=== PATIENT | female | born 1940 | race Caucasian/White ===

== ENCOUNTER → 2017-09-07 | Outpatient (CLI) | payer MEDICARE, BC ==
[~2017-09-07] MED LIST: ALEVE220 M1 PO; ASA81 MG PO; ATORVASTATIN CA20 MG PO; COUMADIN2.5 MG PO; METHOTREXATE2.5 MG PO; RESTASIS1 EACH OU; TRAMADOL HCL50 M1 PO; ULTRAM50 MG PO; Z.0.CYMBALTA60 MG PO; Z.0.DIOVAN HCT 3201 PO; Z.0.LEVOTHYROXINE112 PO; Z.0.METOPROLOL TART2 PO; Z.0.NEXIUM40 MG PO; [UNRECOGNIZED DRUG - CODE] PO; [UNRECOGNIZED DRUG - OTHER] PO; fish oil PO; provastatin PO
--- NOTE | 2017-09-07 15:29 | Diagnostic Imaging Report ---
EXAMINATION: Head CT HISTORY: Memory loss, status post fall, evaluate for subdural hematoma COMPARISON: None. TECHNIQUE: Multidetector axial images were obtained without contrast from the foramen magnum to the vertex . The images were reconstructed using brain and bone algorithms. Thin section brain images were reformatted into coronal and sagittal planes. Intravenous contrast: None. Motion/streaking artifact limits the evaluation of the skull base and posterior cranial fossa. FINDINGS: Parenchyma: 1. Moderate confluent supratentorial white matter hypodensities, most likely nonspecific chronic microvascular ischemic changes. 2. No mass or hemorrhage. No CT evidence of acute territorial vascular insult. Extra-axial spaces:No abnormal density. No extra-axial fluid collections Brain volume: Normal for age. Ventricles: No hydrocephalus or displacement. Arteries: No density suggestive of thrombus. Dural sinuses: No abnormal density. Extra-axial spaces: No abnormal density. Foramen magnum: No mass, Chiari malformation, or basilar invagination. Sella: No obvious mass. Paranasal/mastoid sinuses: Imaged portions unremarkable. Skull/Scalp: No lytic or blastic lesions. No fractures. IMPRESSION: 1. No acute post traumatic intracranial abnormalities, particularly no subdural hematomas. 2. Moderate chronic microvascular ischemic changes. Signed by: Dr. Pepper Perera M.D. on 09/07/2017 3:25 PM
--- NOTE | 2017-09-07 16:09 | Diagnostic Imaging Report ---
History: MEMORY LOSS / STATUS POST FALL Comparison studies: None Technique: Multiplanar multisequence MR images of the brain without contrast Findings: Scalp: Normal in signal . No masses . Bone marrow: Normal in signal intensity. Extra-axial: No masses or fluid collections. Brain sulci: Moderately prominent. Ventricles: Moderate compensatory dilatation. No hydrocephalus. Parenchyma: Diffuse T2 FLAIR hyperintense foci in the supratentorial white matter and in the jan are nonspecific small vessel ischemic changes. No masses, hemorrhage, or acute or chronic cortical vascular insult Suprasellar region: No abnormalities. Craniocervical junction: No abnormalities. Patent foramen magnum. No Chiari one malformation. Vessels: Normal flow-voids in the arteries and sinuses. IMPRESSION: 1. Severe microvascular ischemic changes in the supratentorial white matter and in the jan. 2. Otherwise, no abnormalities. Signed by: Dr. Brendon Negrete M.D. on 09/07/2017 5:50 PM
== END ==
LOC: MRI 14:19
DX: R41.3 Other amnesia (principal); I10 Essential (primary) hypertension; Z91.81 History of falling
CPT/HCPCS: 70450; 70551

== ENCOUNTER 2020-05-21 11:11 | Inpatient (IN) | payer MEDICARE, BC ==
[~2020-05-21] VITALS: Ht 160 cm; Wt 92.1 kg
[~2020-05-21 11:11] MED LIST changes: +AMLODIPINE BESYL5 MG PO; +COREG3.125 MG PO; +FOLIC ACID0.4 MG PO; +FUROSEMIDE40 MG PO; +HYDRALAZINE HCL10 MG PO; +LOSARTAN POTASS25 MG PO; +OMEPRAZOLE40 MG PO; +PRESERVISION T1 EACH PO; +VIT D PO; +WARFARIN SODIUM3 MG PO; +[UNRECOGNIZED DRUG - OTHER] PO
[2020-05-21 12:37] LABS: INR 1.27; PROTHROMBIN TIME 16.8 seconds (11.9-14.5)
[2020-05-21 12:38] LABS: PARTIAL THROMBOPLASTIN TIME 28.6 seconds (23.8-35.5)
[2020-05-21] MEDS ORDERED: ONDANSETRON HCL INJ 2MG/ML 2ML 2 MG/ML VIAL ONE (12:43)
[2020-05-21] MEDS ORDERED: METOCLOPRAMIDE HCL 10 MG/2ML VIAL ONE (15:10)
[2020-05-21] MEDS ORDERED: DEXAMETHASONE SOD PHOS INJ 4 MG/ML VIAL ONE (15:12)
[2020-05-21 16:02] VITALS: BP 180/66
[2020-05-21 16:28] VITALS: BP 188/66
[2020-05-21] MEDS ORDERED: CEFTRIAXONE SOD 1 GM/50 ML BAG IV SCH (17:15)
[2020-05-21] MEDS: LOSARTAN POTASSIUM 25 MG TAB PO SCH (17:30)
[2020-05-21] MEDS: HYDRALAZINE HCL 10 MG TAB PO SCH (17:30)
[2020-05-21] MEDS: CARVEDILOL 3.125 MG TAB PO SCH (17:30)
[2020-05-21] MEDS ORDERED: CEFTRIAXONE SOD 1 GM in SODIUM CHLORIDE 0.9% 50ML 50 ML IV SCH (18:00)
[2020-05-21] MEDS ORDERED: PROPOFOL IV EMULSION 10 MG/ML 20 ML VIAL ONE (18:01)
[2020-05-21] MEDS ORDERED: LIDOCAINE HCL 2% LOCAL INJ 5 ML SDV VIAL INJ ONE (18:01)
[2020-05-21] MEDS: ALBUTEROL/IPRATROPIUM 3 ML NEB NEB SCH (20:05)
[2020-05-21 20:14] VITALS: BP 130/54
[2020-05-21 20:19] VITALS: BP 130/54
[2020-05-21] MEDS ORDERED: SODIUM CHLORIDE 0.9% 50ML 50 ML ONE (20:35)
[2020-05-21] MEDS: CEFTRIAXONE SOD 1 GM in SODIUM CHLORIDE 0.9% 50ML 50 ML IV SCH (20:49)
[2020-05-21] MEDS: (Cyclosporine (Restasis) 1 DROP) OP SCH (20:49)
[2020-05-21] MEDS: ATORVASTATIN 20 MG TAB PO SCH (20:49)
[2020-05-22] VITALS (9 sets, daily range): BP systolic 99–184; BP diastolic 46–80
[2020-05-22] MEDS: ALBUTEROL/IPRATROPIUM 3 ML NEB NEB SCH ×3 (01:40→18:30)
[2020-05-22] MEDS: LEVOTHYROXINE SODIUM 100 MCG TAB PO SCH (05:24)
[2020-05-22 05:30] LABS: BASOPHILS % 0.2 % (0.0-1.0); HEMATOCRIT 32.9 % (34.2-44.1); HEMOGLOBIN 10.2 g/dL (12.0-16.0); LYMPHOCYTES # (AUTO) 0.7 (1.0-3.2); LYMPHOCYTES % 4.2 % (18.0-39.1); MEAN CORPUSCULAR HEMOGLOBIN 28.9 pg (28-32); MEAN CORPUSCULAR VOLUME 93.2 fL (81-99); MONOCYTES # (AUTO) 0.3 (0.2-0.8); MONOCYTES % 1.5 % (4.4-11.3); NEUTROPHILS # (AUTO) 15.9 (2.1-6.9); NEUTROPHILS % 93.3 % (38.7-80.0); PLATELET COUNT 244 x10e3/uL (140-360); RED BLOOD COUNT 3.53 x10e6/uL (3.6-5.1); RED CELL DISTRIBUTION WIDTH 22.9 % (11.7-14.4)
[2020-05-22 05:57] LABS: ANION GAP 14.3 mmol/L (8-16); BLOOD UREA NITROGEN 19 mg/dL (7-26); BUN/CREATININE RATIO 22 (6-25); CALCIUM 8.9 mg/dL (8.4-10.2); CARBON DIOXIDE 26 mmol/L (22-29); CHLORIDE 104 mmol/L (98-107); CREATININE, SERUM 0.86 mg/dL (0.57-1.11); EST GLOMERULAR FILTRATION RATE > 60 ML/MIN (60-); GLUCOSE 208 mg/dL (74-118); POTASSIUM 4.3 mmol/L (3.5-5.1); SODIUM 140 mmol/L (136-145)
[2020-05-22] MEDS: (Cyclosporine (Restasis) 1 DROP) OP SCH ×2 (08:47→20:24)
[2020-05-22] MEDS: FOLIC ACID 1 MG TAB PO SCH (08:48)
[2020-05-22] MEDS: PANTOPRAZOLE SOD 40 MG TABEC PO SCH (08:48)
[2020-05-22] MEDS: FUROSEMIDE 20 MG TAB PO SCH (08:48)
[2020-05-22] MEDS: LOSARTAN POTASSIUM 25 MG TAB PO SCH ×2 (08:48→16:04)
[2020-05-22] MEDS: CHOLECALCIFEROL 1,000 UNIT TAB PO SCH (08:48)
[2020-05-22] MEDS: CARVEDILOL 3.125 MG TAB PO SCH ×2 (08:48→16:03)
[2020-05-22] MEDS: DULOXETINE HCL 30 MG DELAYED RELEASE PO SCH (08:48)
[2020-05-22] MEDS: HYDRALAZINE HCL 10 MG TAB PO SCH ×2 (08:48→16:03)
[2020-05-22] MEDS: OCUVITE PRESERVISION TABLET PO SCH (08:48)
[2020-05-22] MEDS: AMLODIPINE BESYLATE 5 MG TAB PO SCH (08:48)
[2020-05-22] MEDS ORDERED: NON-FORMULARY MEDICATION (Cholecalciferol (Vitamin D3) (Vitamin D3) 2,000 UNIT) PO SCH (09:00)
[2020-05-22] MEDS ORDERED: NON-FORMULARY MEDICATION (Duloxetine Hcl (Cymbalta) 60 MG) PO SCH (09:00)
[2020-05-22] MEDS ORDERED: LEVOTHYROXINE SODIUM 112 MCG TAB PO SCH (09:00)
[2020-05-22] MEDS ORDERED: NON-FORMULARY MEDICATION (Folic Acid* 0.4 MG) PO SCH (09:00)
[2020-05-22] MEDS: ATORVASTATIN 20 MG TAB PO SCH (20:24)
[2020-05-22] MEDS: CEFTRIAXONE SOD 1 GM in SODIUM CHLORIDE 0.9% 50ML 50 ML IV SCH (20:26)
[2020-05-23] VITALS (7 sets, daily range): BP systolic 141–170; BP diastolic 38–63
[2020-05-23] MEDS: ALBUTEROL/IPRATROPIUM 3 ML NEB NEB SCH ×4 (01:00→19:50)
[2020-05-23] MEDS: LEVOTHYROXINE SODIUM 100 MCG TAB PO SCH (05:46)
[2020-05-23] MEDS: LOSARTAN POTASSIUM 25 MG TAB PO SCH ×2 (08:46→16:38)
[2020-05-23] MEDS: PANTOPRAZOLE SOD 40 MG TABEC PO SCH (08:46)
[2020-05-23] MEDS: CARVEDILOL 3.125 MG TAB PO SCH ×2 (08:46→16:38)
[2020-05-23] MEDS: CHOLECALCIFEROL 1,000 UNIT TAB PO SCH (08:46)
[2020-05-23] MEDS: FOLIC ACID 1 MG TAB PO SCH (08:46)
[2020-05-23] MEDS: FUROSEMIDE 20 MG TAB PO SCH (08:46)
[2020-05-23] MEDS: OCUVITE PRESERVISION TABLET PO SCH (08:46)
[2020-05-23] MEDS: HYDRALAZINE HCL 10 MG TAB PO SCH ×2 (08:46→16:38)
[2020-05-23] MEDS: AMLODIPINE BESYLATE 5 MG TAB PO SCH (08:46)
[2020-05-23] MEDS: DULOXETINE HCL 30 MG DELAYED RELEASE PO SCH (08:46)
[2020-05-23] MEDS: (Cyclosporine (Restasis) 1 DROP) OP SCH ×2 (08:47→21:00)
[2020-05-23] MEDS: WARFARIN SOD 2 MG TAB PO SCH (18:25)
[2020-05-23] MEDS: TAMSULOSIN HCL 0.4 MG CAP PO SCH (20:45)
[2020-05-23] MEDS: ATORVASTATIN 20 MG TAB PO SCH (20:45)
[2020-05-23] MEDS: CEFTRIAXONE SOD 1 GM in SODIUM CHLORIDE 0.9% 50ML 50 ML IV SCH (20:45)
[2020-05-23] MEDS ORDERED: SALINE 0.65% NAS SOLN 1 SPRAY BTL PRN (21:30)
[2020-05-23] MEDS ORDERED: PREDNISONE 20 MG TAB PO ONE (21:30)
[2020-05-24] VITALS (9 sets, daily range): BP systolic 114–196; BP diastolic 52–76
[2020-05-24] MEDS: ALBUTEROL/IPRATROPIUM 3 ML NEB NEB SCH ×4 (01:45→18:53)
[2020-05-24] MEDS: LEVOTHYROXINE SODIUM 100 MCG TAB PO SCH (05:16)
[2020-05-24 05:50] LABS: BASOPHILS % 0.2 % (0.0-1.0); EOSINOPHILS % 0.3 % (0.0-6.0); HEMATOCRIT 30.8 % (34.2-44.1); HEMOGLOBIN 9.7 g/dL (12.0-16.0); LYMPHOCYTES # (AUTO) 0.5 (1.0-3.2); LYMPHOCYTES % 5.4 % (18.0-39.1); MEAN CORPUSCULAR HEMOGLOBIN 28.8 pg (28-32); MEAN CORPUSCULAR HGB CONC 31.5 g/dL (31-35); MEAN CORPUSCULAR VOLUME 91.4 fL (81-99); MONOCYTES # (AUTO) 0.1 (0.2-0.8); MONOCYTES % 1.1 % (4.4-11.3); NEUTROPHILS # (AUTO) 8.9 (2.1-6.9); NEUTROPHILS % 91.7 % (38.7-80.0); PLATELET COUNT 220 x10e3/uL (140-360); RED BLOOD COUNT 3.37 x10e6/uL (3.6-5.1); RED CELL DISTRIBUTION WIDTH 23.6 % (11.7-14.4)
[2020-05-24 06:01] LABS: INR 1.02
[2020-05-24] MEDS: DULOXETINE HCL 30 MG DELAYED RELEASE PO SCH (08:41)
[2020-05-24] MEDS: (Cyclosporine (Restasis) 1 DROP) OP SCH ×2 (08:41→19:53)
[2020-05-24] MEDS: CARVEDILOL 3.125 MG TAB PO SCH ×2 (08:41→17:19)
[2020-05-24] MEDS: AMLODIPINE BESYLATE 5 MG TAB PO SCH ×3 (08:41→20:56)
[2020-05-24] MEDS: CHOLECALCIFEROL 1,000 UNIT TAB PO SCH (08:41)
[2020-05-24] MEDS: LORATADINE 10 MG TAB PO SCH (08:41)
[2020-05-24] MEDS: OCUVITE PRESERVISION TABLET PO SCH (08:41)
[2020-05-24] MEDS: LOSARTAN POTASSIUM 25 MG TAB PO SCH ×2 (08:41→17:19)
[2020-05-24] MEDS: HYDRALAZINE HCL 10 MG TAB PO SCH ×2 (08:41→17:18)
[2020-05-24] MEDS: PANTOPRAZOLE SOD 40 MG TABEC PO SCH (08:41)
[2020-05-24] MEDS: FOLIC ACID 1 MG TAB PO SCH (08:41)
[2020-05-24] MEDS: FUROSEMIDE 20 MG TAB PO SCH (08:41)
[2020-05-24] MEDS: WARFARIN SOD 2 MG TAB PO SCH (17:19)
[2020-05-24] MEDS: CEFTRIAXONE SOD 1 GM in SODIUM CHLORIDE 0.9% 50ML 50 ML IV SCH (20:56)
[2020-05-24] MEDS: ATORVASTATIN 20 MG TAB PO SCH (20:56)
[2020-05-24] MEDS: TAMSULOSIN HCL 0.4 MG CAP PO SCH (20:56)
[2020-05-25] VITALS (7 sets, daily range): BP systolic 120–159; BP diastolic 48–61
[2020-05-25] MEDS: ALBUTEROL/IPRATROPIUM 3 ML NEB NEB SCH ×3 (01:00→13:08)
[2020-05-25] MEDS: LEVOTHYROXINE SODIUM 100 MCG TAB PO SCH (05:54)
[2020-05-25 06:17] LABS: BASOPHILS % 0.5 % (0.0-1.0); EOSINOPHILS # (AUTO) 0.5 (0.0-0.4); EOSINOPHILS % 6.2 % (0.0-6.0); HEMATOCRIT 28.3 % (34.2-44.1); HEMOGLOBIN 8.5 g/dL (12.0-16.0); LYMPHOCYTES # (AUTO) 1.9 (1.0-3.2); LYMPHOCYTES % 22.1 % (18.0-39.1); MEAN CORPUSCULAR HEMOGLOBIN 28.4 pg (28-32); MEAN CORPUSCULAR VOLUME 94.6 fL (81-99); MONOCYTES # (AUTO) 1.1 (0.2-0.8); MONOCYTES % 13.5 % (4.4-11.3); NEUTROPHILS # (AUTO) 4.8 (2.1-6.9); NEUTROPHILS % 56.7 % (38.7-80.0); PLATELET COUNT 186 x10e3/uL (140-360); RED BLOOD COUNT 2.99 x10e6/uL (3.6-5.1); RED CELL DISTRIBUTION WIDTH 24.2 % (11.7-14.4)
[2020-05-25 06:35] LABS: ANION GAP 16.9 mmol/L (8-16); BLOOD UREA NITROGEN 23 mg/dL (7-26); BUN/CREATININE RATIO 30 (6-25); CALCIUM 8.2 mg/dL (8.4-10.2); CARBON DIOXIDE 23 mmol/L (22-29); CHLORIDE 105 mmol/L (98-107); CREATININE, SERUM 0.77 mg/dL (0.57-1.11); EST GLOMERULAR FILTRATION RATE > 60 ML/MIN (60-); GLUCOSE 117 mg/dL (74-118); POTASSIUM 3.9 mmol/L (3.5-5.1); SODIUM 141 mmol/L (136-145)
[2020-05-25] MEDS: (Cyclosporine (Restasis) 1 DROP) OP SCH (09:00)
[2020-05-25] MEDS: CARVEDILOL 3.125 MG TAB PO SCH ×2 (09:00→17:57)
[2020-05-25] MEDS: LORATADINE 10 MG TAB PO SCH (09:02)
[2020-05-25] MEDS: DULOXETINE HCL 30 MG DELAYED RELEASE PO SCH (09:03)
[2020-05-25] MEDS: FOLIC ACID 1 MG TAB PO SCH (09:03)
[2020-05-25] MEDS: FUROSEMIDE 20 MG TAB PO SCH (09:04)
[2020-05-25] MEDS: PANTOPRAZOLE SOD 40 MG TABEC PO SCH (09:04)
[2020-05-25] MEDS: CHOLECALCIFEROL 1,000 UNIT TAB PO SCH (09:04)
[2020-05-25] MEDS: OCUVITE PRESERVISION TABLET PO SCH (09:04)
[2020-05-25] MEDS: HYDRALAZINE HCL 10 MG TAB PO SCH ×2 (09:05→17:37)
[2020-05-25] MEDS: LOSARTAN POTASSIUM 25 MG TAB PO SCH ×2 (09:05→17:38)
[2020-05-25] MEDS: AMLODIPINE BESYLATE 5 MG TAB PO SCH (09:06)
[2020-05-25 09:35] LABS: ANISOCYTOSIS MODERATE; PLATELET ESTIMATE ADEQUATE; PLATELET MORPHOLOGY COMMENT NORMAL
[2020-05-25 09:36] LABS: OVALOCYTES FEW; TEAR DROP CELLS FEW
[2020-05-25 09:37] LABS: MICROCYTOSIS SLIGHT; RBC MORPHOLOGY COMMENT ABNORMAL
[2020-05-25] MEDS: WARFARIN SOD 2 MG TAB PO SCH (17:38)
[2020-05-26] MEDS ORDERED: WARFARIN SOD 3 MG TAB PO SCH (17:00)
== END 2020-05-25 18:28 | disposition home or self-care (01) | DRG 178 ==
LOC: OR 11:11 → PACU V 15:42 → MED/SURG 16:04 → OBSVTOIN 05-22 11:28 → MED/SURG2 05-24 23:56
PROC: 0DB98ZX Excision of Duodenum, Via Natural or Artificial Opening Endoscopic, Diagnostic (ICD-10-PCS; principal; 2020-05-21 13:00)
PROC: 0DB88ZX Excision of Small Intestine, Via Natural or Artificial Opening Endoscopic, Diagnostic (ICD-10-PCS; 2020-05-21 13:00)
PROC: 0DB78ZX Excision of Stomach, Pylorus, Via Natural or Artificial Opening Endoscopic, Diagnostic (ICD-10-PCS; 2020-05-21 13:00)
PROC: 0D738ZZ Dilation of Lower Esophagus, Via Natural or Artificial Opening Endoscopic (ICD-10-PCS; 2020-05-21 13:00)
PROC: 0DBL8ZX Excision of Transverse Colon, Via Natural or Artificial Opening Endoscopic, Diagnostic (ICD-10-PCS; 2020-05-21 13:00)
DX: J69.0 Pneumonitis due to inhalation of food and vomit (principal); D62 Acute posthemorrhagic anemia; J44.1 Chronic obstructive pulmonary disease with (acute) exacerbation; K20.90 Esophagitis, unspecified without bleeding; I10 Essential (primary) hypertension; E03.9 Hypothyroidism, unspecified; E78.5 Hyperlipidemia, unspecified; K21.9 Gastro-esophageal reflux disease without esophagitis; J30.9 Allergic rhinitis, unspecified; E66.9 Obesity, unspecified; Z68.36 Body mass index [BMI] 36.0-36.9, adult; Z86.718 Personal history of other venous thrombosis and embolism; Z79.01 Long term (current) use of anticoagulants; J44.9 Chronic obstructive pulmonary disease, unspecified; K44.9 Diaphragmatic hernia without obstruction or gangrene; K31.89 Other diseases of stomach and duodenum; K31.7 Polyp of stomach and duodenum; K29.70 Gastritis, unspecified, without bleeding; K63.5 Polyp of colon; K57.30 Diverticulosis of large intestine without perforation or abscess without bleeding; K64.8 Other hemorrhoids; Z20.822 Contact with and (suspected) exposure to COVID-19; Z86.711 Personal history of pulmonary embolism; M06.9 Rheumatoid arthritis, unspecified; E11.40 Type 2 diabetes mellitus with diabetic neuropathy, unspecified
CPT/HCPCS: 36415; 43239; 43450; 45378; 45384; 45385; 71045; 71046; 80048; 82948; 85025; 85610; 85730; 88305; 88312; 93005; 94640; 97139; 99251; G0378; J0696; J1100; J2001; J2405; J2765; J7512; U0002

== ENCOUNTER 2020-12-13 16:23 | Emergency (ER) | payer MEDICARE, BC ==
[~2020-12-13] VITALS: Ht 162.6 cm; Wt 93.4 kg
[2020-12-13 16:57] LABS: BASOPHILS # (AUTO) 0.1 (0.0-0.1); BASOPHILS % 0.7 % (0.0-1.0); EOSINOPHILS # (AUTO) 0.2 (0.0-0.4); EOSINOPHILS % 2.4 % (0.0-6.0); HEMATOCRIT 29.1 % (34.2-44.1); HEMOGLOBIN 8.9 g/dL (12.0-16.0); LYMPHOCYTES # (AUTO) 2.8 (1.0-3.2); LYMPHOCYTES % 34.3 % (18.0-39.1); MEAN CORPUSCULAR HEMOGLOBIN 25.1 pg (28-32); MEAN CORPUSCULAR HGB CONC 30.6 g/dL (31-35); MEAN CORPUSCULAR VOLUME 82.2 fL (81-99); MONOCYTES # (AUTO) 0.7 (0.2-0.8); MONOCYTES % 8.4 % (4.4-11.3); NEUTROPHILS # (AUTO) 4.5 (2.1-6.9); PLATELET COUNT 328 x10e3/uL (140-360); RED BLOOD COUNT 3.54 x10e6/uL (3.6-5.1); RED CELL DISTRIBUTION WIDTH 21.7 % (11.7-14.4)
[2020-12-13 17:12] LABS: INR 2.63; PROTHROMBIN TIME 28.5 seconds (11.9-14.5)
[2020-12-13 17:15] LABS: ALBUMIN 3.6 g/dL (3.5-5.0); ANION GAP 18.9 mmol/L (8-16); CALCIUM 8.7 mg/dL (8.4-10.2); CREATININE, SERUM 1.2 mg/dL (0.57-1.11); POTASSIUM 3.9 mmol/L (3.5-5.1)
== END 2020-12-13 17:41 | disposition home or self-care (01) ==
LOC: ER 16:33
DX: R60.9 Edema, unspecified (principal); M79.605 Pain in left leg; M79.604 Pain in right leg; I10 Essential (primary) hypertension; I50.9 Heart failure, unspecified; E03.9 Hypothyroidism, unspecified; K21.9 Gastro-esophageal reflux disease without esophagitis; F41.9 Anxiety disorder, unspecified
CPT/HCPCS: 36415; 80053; 85025; 85610; 93970; 99282

== ENCOUNTER 2021-03-13 12:44 | Inpatient (IN) | payer MEDICARE, BC ==
[~2021-03-13] VITALS: Ht 162.6 cm; Wt 93.4 kg
[2021-03-13 14:46] LABS: EOSINOPHILS % 0.4 % (0.0-6.0); HEMATOCRIT 26.6 % (34.2-44.1); HEMOGLOBIN 8.5 g/dL (12.0-16.0); LYMPHOCYTES # (AUTO) 0.9 (1.0-3.2); LYMPHOCYTES % 33.1 % (18.0-39.1); MEAN CORPUSCULAR VOLUME 84.4 fL (81-99); MONOCYTES # (AUTO) 0.1 (0.2-0.8); MONOCYTES % 1.8 % (4.4-11.3); NEUTROPHILS # (AUTO) 1.8 (2.1-6.9); NEUTROPHILS % 64.3 % (38.7-80.0); PLATELET COUNT 148 x10e3/uL (140-360); RED BLOOD COUNT 3.15 x10e6/uL (3.6-5.1); RED CELL DISTRIBUTION WIDTH 24.6 % (11.7-14.4)
[2021-03-13 14:53] LABS: INR 2.95
[2021-03-13 14:55] LABS: PARTIAL THROMBOPLASTIN TIME 82.9 seconds (23.8-35.5)
[2021-03-13 15:07] LABS: ALBUMIN 2.8 g/dL (3.5-5.0); ALBUMIN/GLOBULIN RATIO 0.8 (0.8-2.0); ANION GAP 15.3 mmol/L (8-16); CALCIUM 7.9 mg/dL (8.4-10.2); CREATINE KINASE MB 1.2 ng/mL (0-5.0); CREATININE, SERUM 2.95 mg/dL (0.57-1.11); POTASSIUM 4.3 mmol/L (3.5-5.1)
[2021-03-13] MEDS ORDERED: ONDANSETRON HCL INJ 2MG/ML 2ML 2 MG/ML VIAL IV PRN (17:15)
[2021-03-13] MEDS: SODIUM CHLORIDE 0.9% 1000ML 1,000 ML IV SCH (17:28)
[2021-03-13 20:50] VITALS: BP 137/49
[2021-03-13] MEDS: ATORVASTATIN 20 MG TAB PO SCH (21:14)
[2021-03-13 22:22] VITALS: BP 137/49
[2021-03-13 22:27] VITALS: BP 137/49
[2021-03-13 23:43] VITALS: BP 140/96
[2021-03-14] VITALS (7 sets, daily range): BP systolic 126–179; BP diastolic 48–69
[2021-03-14 05:46] LABS: EOSINOPHILS % 0.7 % (0.0-6.0); HEMATOCRIT 24.5 % (34.2-44.1); HEMOGLOBIN 7.7 g/dL (12.0-16.0); LYMPHOCYTES # (AUTO) 0.9 (1.0-3.2); MEAN CORPUSCULAR HGB CONC 31.4 g/dL (31-35); MONOCYTES # (AUTO) 0.1 (0.2-0.8); MONOCYTES % 2.6 % (4.4-11.3); NEUTROPHILS # (AUTO) 2.1 (2.1-6.9); PLATELET COUNT 118 x10e3/uL (140-360); RED BLOOD COUNT 2.85 x10e6/uL (3.6-5.1); RED CELL DISTRIBUTION WIDTH 23.9 % (11.7-14.4)
[2021-03-14] MEDS: LEVOTHYROXINE SODIUM 100 MCG TAB PO SCH (06:07)
[2021-03-14 06:12] LABS: ALBUMIN 2.3 g/dL (3.5-5.0); ALBUMIN/GLOBULIN RATIO 0.7 (0.8-2.0); ANION GAP 13.6 mmol/L (8-16); CALCIUM 7.9 mg/dL (8.4-10.2); CREATININE, SERUM 2.6 mg/dL (0.57-1.11); POTASSIUM 4.6 mmol/L (3.5-5.1)
[2021-03-14] MEDS: SODIUM CHLORIDE 0.9% 1000ML 1,000 ML IV SCH (06:12)
[2021-03-14 06:54] LABS: CREATINE KINASE MB 0.9 ng/mL (0-5.0)
[2021-03-14 08:21] LABS: EOSINOPHILS % (MANUAL) 1 % (0-7); LYMPHOCYTES % (MANUAL) 27 % (19-48); MONOCYTES % (MANUAL) 1 % (3.4-9.0); NEUTROPHILS % (MANUAL) 70 % (40-74)
[2021-03-14 08:22] LABS: OVALOCYTES FEW
[2021-03-14 08:23] LABS: PLATELET ESTIMATE SLIGHTLY DECREASED; PLATELET MORPHOLOGY COMMENT NORMAL; RBC MORPHOLOGY COMMENT ABNORMAL; TARGET CELLS FEW
[2021-03-14] MEDS: PANTOPRAZOLE SOD 40 MG TABEC PO SCH (08:29)
[2021-03-14] MEDS: LOSARTAN POTASSIUM 25 MG TAB PO SCH ×2 (08:29→16:33)
[2021-03-14] MEDS ORDERED: CARVEDILOL 3.125 MG TAB PO SCH (09:00)
[2021-03-14] MEDS ORDERED: REMDESIVIR 200MG 200 MG in SODIUM CHLORIDE 0.9% 100 ML IV ONE (11:15)
[2021-03-14] MEDS: ACETAMINOPHEN 325 MG TAB PO PRN (12:26)
[2021-03-14] MEDS: HYDRALAZINE HCL 10 MG TAB PO SCH ×2 (13:15→16:34)
[2021-03-14] MEDS: AMLODIPINE BESYLATE 5 MG TAB PO SCH (13:15)
[2021-03-14 14:47] LABS: CREATINE KINASE MB 0.8 ng/mL (0-5.0)
[2021-03-14] MEDS: CARVEDILOL 3.125 MG TAB PO SCH (16:34)
[2021-03-14] MEDS: WARFARIN SOD 2 MG TAB PO SCH (16:34)
[2021-03-14] MEDS ORDERED: WARFARIN SOD 2 MG TAB PO SCH (17:00)
[2021-03-14 18:37] LABS: CLARITY,URINE CLOUDY (CLEAR); COLOR,URINE YELLOW (YELLOW); KETONES,URINE NEGATIVE (NEGATIVE); LEUKOCYTE ESTERASE ,URINE SMALL (NEGATIVE); NITRITE,URINE NEGATIVE (NEGATIVE); PROTEIN,URINE DIPSTICK 2+ (NEGATIVE); URINE UROBILINOGEN 0.2 mg/dL (0.2 - 1)
[2021-03-14 18:38] LABS: BACTERIA,URINE MANY /HPF; EPITHELIAL CELLS,URINE MANY /LPF; RBC,URINE >50 /HPF (0-5); WBC,URINE (MAN) >50 /HPF (0-5)
[2021-03-14 18:48] LABS: CREATININE,URINE RANDOM 81.77 mg/dL (47-110); SODIUM,URINE 32 mmol/L; TOTAL PROTEIN, URINE 73.2 mg/dL (1-14)
[2021-03-14] MEDS: ATORVASTATIN 20 MG TAB PO SCH (20:32)
[2021-03-15] VITALS (9 sets, daily range): BP systolic 122–174; BP diastolic 49–88
[2021-03-15] MEDS ORDERED: ALBUTEROL/IPRATROPIUM 3 ML NEB NEB PRN (00:30)
[2021-03-15] MEDS ORDERED: ALBUTEROL SULFATE HFA 8GM INHALATION AEROSOL INH PRN (01:00)
[2021-03-15] MEDS: ACETAMINOPHEN 325 MG TAB PO PRN (05:15)
[2021-03-15 06:04] LABS: EOSINOPHILS % 0.4 % (0.0-6.0); HEMATOCRIT 24.9 % (34.2-44.1); HEMOGLOBIN 7.6 g/dL (12.0-16.0); LYMPHOCYTES # (AUTO) 0.5 (1.0-3.2); LYMPHOCYTES % 22.6 % (18.0-39.1); MEAN CORPUSCULAR HEMOGLOBIN 26.6 pg (28-32); MEAN CORPUSCULAR HGB CONC 30.5 g/dL (31-35); MEAN CORPUSCULAR VOLUME 87.1 fL (81-99); MONOCYTES # (AUTO) 0.1 (0.2-0.8); MONOCYTES % 2.6 % (4.4-11.3); NEUTROPHILS # (AUTO) 1.7 (2.1-6.9); NEUTROPHILS % 73.5 % (38.7-80.0); PLATELET COUNT 85 x10e3/uL (140-360); RED BLOOD COUNT 2.86 x10e6/uL (3.6-5.1); RED CELL DISTRIBUTION WIDTH 24.2 % (11.7-14.4)
[2021-03-15 06:15] LABS: INR 2.74; PROTHROMBIN TIME 31.2 seconds (11.9-14.5)
[2021-03-15] MEDS: LEVOTHYROXINE SODIUM 100 MCG TAB PO SCH (06:22)
[2021-03-15 06:30] LABS: ALBUMIN 2.2 g/dL (3.5-5.0); ALBUMIN/GLOBULIN RATIO 0.7 (0.8-2.0); ANION GAP 14.2 mmol/L (8-16); CALCIUM 7.8 mg/dL (8.4-10.2); CREATININE, SERUM 2.5 mg/dL (0.57-1.11); POTASSIUM 4.2 mmol/L (3.5-5.1)
[2021-03-15] MEDS: IPRATROPIUM BROMIDE INHALER 12.9 GM INH INH SCH ×4 (07:00→23:57)
[2021-03-15] MEDS: PANTOPRAZOLE SOD 40 MG TABEC PO SCH (09:30)
[2021-03-15] MEDS: DEXAMETHASONE SOD PHOS 10 MG/1 ML VIAL IV SCH (09:30)
[2021-03-15] MEDS: HYDRALAZINE HCL 10 MG TAB PO SCH ×2 (09:30→16:56)
[2021-03-15] MEDS: LOSARTAN POTASSIUM 25 MG TAB PO SCH ×2 (09:30→16:57)
[2021-03-15] MEDS: CARVEDILOL 3.125 MG TAB PO SCH ×2 (09:30→16:56)
[2021-03-15 12:08] LABS: HEMATOCRIT 24.8 % (34.2-44.1); HEMOGLOBIN 7.7 g/dL (12.0-16.0); LYMPHOCYTES # (AUTO) 0.5 (1.0-3.2); LYMPHOCYTES % 19.7 % (18.0-39.1); MEAN CORPUSCULAR HEMOGLOBIN 26.9 pg (28-32); MEAN CORPUSCULAR VOLUME 86.7 fL (81-99); MONOCYTES # (AUTO) 0.1 (0.2-0.8); MONOCYTES % 3.4 % (4.4-11.3); NEUTROPHILS # (AUTO) 1.8 (2.1-6.9); NEUTROPHILS % 76.5 % (38.7-80.0); PLATELET COUNT 80 x10e3/uL (140-360); RED BLOOD COUNT 2.86 x10e6/uL (3.6-5.1)
[2021-03-15 12:30] LABS: ANION GAP 14.2 mmol/L (8-16); CALCIUM 7.6 mg/dL (8.4-10.2); CREATININE, SERUM 2.31 mg/dL (0.57-1.11); POTASSIUM 4.2 mmol/L (3.5-5.1)
[2021-03-15] MEDS: REMDESIVIR 100MG 100 MG in SODIUM CHLORIDE 0.9% 100 ML IV SCH (12:34)
[2021-03-15] MEDS: AMLODIPINE BESYLATE 5 MG TAB PO SCH (12:34)
[2021-03-15 13:11] LABS: CREATINE KINASE MB 0.9 ng/mL (0-5.0)
[2021-03-15] MEDS: CEFTRIAXONE 1 GM in SODIUM CHLORIDE 0.9% 50ML 50 ML IV SCH (16:57)
[2021-03-15] MEDS: WARFARIN SOD 2 MG TAB PO SCH (16:57)
[2021-03-15] MEDS: ATORVASTATIN 20 MG TAB PO SCH (21:11)
[2021-03-16] VITALS (7 sets, daily range): BP systolic 122–150; BP diastolic 49–70
[2021-03-16] MEDS: LEVOTHYROXINE SODIUM 100 MCG TAB PO SCH (05:55)
[2021-03-16 06:44] LABS: ALBUMIN 2.1 g/dL (3.5-5.0); ALBUMIN/GLOBULIN RATIO 0.6 (0.8-2.0); ANION GAP 15.1 mmol/L (8-16); CALCIUM 8.1 mg/dL (8.4-10.2); CREATININE, SERUM 2.26 mg/dL (0.57-1.11); POTASSIUM 4.1 mmol/L (3.5-5.1)
[2021-03-16 06:56] LABS: INR 2.37; PROTHROMBIN TIME 27.8 seconds (11.9-14.5)
[2021-03-16] MEDS: IPRATROPIUM BROMIDE INHALER 12.9 GM INH INH SCH ×2 (07:00→12:37)
[2021-03-16] MEDS: DEXAMETHASONE SOD PHOS 10 MG/1 ML VIAL IV SCH (09:27)
[2021-03-16] MEDS: HYDRALAZINE HCL 10 MG TAB PO SCH ×2 (09:29→17:23)
[2021-03-16] MEDS: CARVEDILOL 3.125 MG TAB PO SCH ×2 (09:29→17:24)
[2021-03-16] MEDS: LOSARTAN POTASSIUM 25 MG TAB PO SCH ×2 (09:30→17:25)
[2021-03-16] MEDS: PANTOPRAZOLE SOD 40 MG TABEC PO SCH (09:30)
[2021-03-16] MEDS: AMLODIPINE BESYLATE 5 MG TAB PO SCH (09:30)
[2021-03-16] MEDS: REMDESIVIR 100MG 100 MG in SODIUM CHLORIDE 0.9% 100 ML IV SCH (12:00)
[2021-03-16] MEDS: CEFTRIAXONE 1 GM in SODIUM CHLORIDE 0.9% 50ML 50 ML IV SCH (17:23)
[2021-03-16] MEDS: WARFARIN SOD 2 MG TAB PO SCH (17:24)
[2021-03-17 00:24] VITALS: BP 137/53
[2021-03-17 04:19] VITALS: BP 134/48
[2021-03-17] MEDS: LEVOTHYROXINE SODIUM 100 MCG TAB PO SCH (06:08)
[2021-03-17 06:44] LABS: HEMATOCRIT 28.1 % (34.2-44.1); HEMOGLOBIN 8.6 g/dL (12.0-16.0); LYMPHOCYTES # (AUTO) 0.6 (1.0-3.2); LYMPHOCYTES % 31.2 % (18.0-39.1); MEAN CORPUSCULAR HEMOGLOBIN 26.9 pg (28-32); MEAN CORPUSCULAR HGB CONC 30.6 g/dL (31-35); MEAN CORPUSCULAR VOLUME 87.8 fL (81-99); MONOCYTES # (AUTO) 0.2 (0.2-0.8); MONOCYTES % 11.4 % (4.4-11.3); NEUTROPHILS # (AUTO) 1.1 (2.1-6.9); NEUTROPHILS % 55.9 % (38.7-80.0); PLATELET COUNT 98 x10e3/uL (140-360); RED CELL DISTRIBUTION WIDTH 24.9 % (11.7-14.4)
[2021-03-17 07:05] LABS: INR 3.07; PROTHROMBIN TIME 34.1 seconds (11.9-14.5)
[2021-03-17 07:30] LABS: ANION GAP 15.5 mmol/L (8-16); CALCIUM 7.8 mg/dL (8.4-10.2); CREATININE, SERUM 2.08 mg/dL (0.57-1.11); POTASSIUM 4.5 mmol/L (3.5-5.1)
[2021-03-17 08:20] VITALS: BP 135/59
[2021-03-17] MEDS: CARVEDILOL 3.125 MG TAB PO SCH ×2 (09:00→17:00)
[2021-03-17] MEDS: DEXAMETHASONE SOD PHOS 10 MG/1 ML VIAL IV SCH (09:14)
[2021-03-17] MEDS: HYDRALAZINE HCL 10 MG TAB PO SCH ×2 (09:15→17:00)
[2021-03-17] MEDS: LOSARTAN POTASSIUM 25 MG TAB PO SCH ×2 (09:16→17:00)
[2021-03-17] MEDS: PANTOPRAZOLE SOD 40 MG TABEC PO SCH (09:16)
[2021-03-17] MEDS: AMLODIPINE BESYLATE 5 MG TAB PO SCH (09:16)
[2021-03-17] MEDS: REMDESIVIR 100MG 100 MG in SODIUM CHLORIDE 0.9% 100 ML IV SCH (11:15)
[2021-03-17 11:46] VITALS: BP 112/58
[2021-03-17] MEDS: CEFTRIAXONE 1 GM in SODIUM CHLORIDE 0.9% 50ML 50 ML IV SCH (17:00)
[2021-03-17] MEDS ORDERED: WARFARIN SOD 2 MG TAB PO SCH (17:00)
[2021-03-17 20:00] VITALS: BP 164/59
[2021-03-18] VITALS: BP 151/85
[2021-03-18 04:00] VITALS: BP 158/60
[2021-03-18] MEDS: LEVOTHYROXINE SODIUM 100 MCG TAB PO SCH (05:35)
[2021-03-18 06:17] LABS: HEMATOCRIT 27.2 % (34.2-44.1); HEMOGLOBIN 8.6 g/dL (12.0-16.0); LYMPHOCYTES # (AUTO) 0.8 (1.0-3.2); LYMPHOCYTES % 44.8 % (18.0-39.1); MEAN CORPUSCULAR HEMOGLOBIN 27.1 pg (28-32); MEAN CORPUSCULAR HGB CONC 31.6 g/dL (31-35); MEAN CORPUSCULAR VOLUME 85.8 fL (81-99); MONOCYTES # (AUTO) 0.3 (0.2-0.8); MONOCYTES % 18.6 % (4.4-11.3); NEUTROPHILS # (AUTO) 0.6 (2.1-6.9); PLATELET COUNT 121 x10e3/uL (140-360); RED BLOOD COUNT 3.17 x10e6/uL (3.6-5.1); RED CELL DISTRIBUTION WIDTH 24.2 % (11.7-14.4)
[2021-03-18 06:49] LABS: INR 4.09
[2021-03-18 06:53] LABS: PROTHROMBIN TIME 42.8 seconds (11.9-14.5)
[2021-03-18 07:05] LABS: ALBUMIN/GLOBULIN RATIO 0.6 (0.8-2.0); ANION GAP 14.3 mmol/L (8-16); CALCIUM 7.6 mg/dL (8.4-10.2); CREATININE, SERUM 1.89 mg/dL (0.57-1.11); POTASSIUM 4.3 mmol/L (3.5-5.1)
[2021-03-18 08:06] VITALS: BP 158/60
[2021-03-18 08:10] VITALS: BP 139/53
[2021-03-18] MEDS ORDERED: ONDANSETRON HCL 4 MG ORAL DISINTEGRATING TAB PO PRN (08:15)
[2021-03-18 09:08] LABS: LYMPHOCYTES % (MANUAL) 43 % (19-48); MONOCYTES % (MANUAL) 16 % (3.4-9.0); NEUTROPHILS % (MANUAL) 37 % (40-74)
[2021-03-18 09:09] LABS: ANISOCYTOSIS MODERATE; PLATELET ESTIMATE SLIGHTLY DECREASED; PLATELET MORPHOLOGY COMMENT NORMAL; POIKILOCYTOSIS SLIGHT; RBC MORPHOLOGY COMMENT ABNORMAL
[2021-03-18] MEDS ORDERED: AZITHROMYCIN 250 MG TAB PO SCH (10:00)
[2021-03-18] MEDS: DEXAMETHASONE SOD PHOS 10 MG/1 ML VIAL IV SCH (10:38)
[2021-03-18] MEDS: AMLODIPINE BESYLATE 5 MG TAB PO SCH (10:39)
[2021-03-18] MEDS: REMDESIVIR 100MG 100 MG in SODIUM CHLORIDE 0.9% 100 ML IV SCH (10:39)
[2021-03-18] MEDS: LOSARTAN POTASSIUM 25 MG TAB PO SCH ×2 (10:39→16:34)
[2021-03-18] MEDS: CARVEDILOL 3.125 MG TAB PO SCH ×2 (10:39→16:33)
[2021-03-18] MEDS: PANTOPRAZOLE SOD 40 MG TABEC PO SCH (10:39)
[2021-03-18] MEDS: HYDRALAZINE HCL 10 MG TAB PO SCH ×2 (10:39→16:33)
[2021-03-18 11:59] VITALS: BP 124/83
[2021-03-18 14:54] LABS: HEMATOCRIT 27.5 % (34.2-44.1); HEMOGLOBIN 8.6 g/dL (12.0-16.0); LYMPHOCYTES # (AUTO) 0.7 (1.0-3.2); LYMPHOCYTES % 51.1 % (18.0-39.1); MEAN CORPUSCULAR HEMOGLOBIN 26.5 pg (28-32); MEAN CORPUSCULAR HGB CONC 31.3 g/dL (31-35); MEAN CORPUSCULAR VOLUME 84.6 fL (81-99); MONOCYTES # (AUTO) 0.2 (0.2-0.8); NEUTROPHILS # (AUTO) 0.4 (2.1-6.9); NEUTROPHILS % 29.4 % (38.7-80.0); PLATELET COUNT 144 x10e3/uL (140-360); RED BLOOD COUNT 3.25 x10e6/uL (3.6-5.1); RED CELL DISTRIBUTION WIDTH 24.4 % (11.7-14.4)
[2021-03-18 15:09] LABS: ANION GAP 16.2 mmol/L (8-16); CALCIUM 7.6 mg/dL (8.4-10.2); CREATININE, SERUM 1.8 mg/dL (0.57-1.11); POTASSIUM 4.2 mmol/L (3.5-5.1)
[2021-03-18] MEDS ORDERED: FILGRASTIM-AAFI 480 MCG/0.8 ML SYRINGE SQ ONE (17:30)
[2021-03-18 20:00] VITALS: BP 159/53
[2021-03-19] VITALS: BP 140/56
[2021-03-19 04:00] VITALS: BP 141/75
[2021-03-19 05:18] LABS: BASOPHILS % 0.3 % (0.0-1.0); HEMATOCRIT 29.3 % (34.2-44.1); HEMOGLOBIN 9.2 g/dL (12.0-16.0); LYMPHOCYTES % 31.9 % (18.0-39.1); MEAN CORPUSCULAR HEMOGLOBIN 26.3 pg (28-32); MEAN CORPUSCULAR HGB CONC 31.4 g/dL (31-35); MEAN CORPUSCULAR VOLUME 83.7 fL (81-99); MONOCYTES # (AUTO) 1.2 (0.2-0.8); MONOCYTES % 38.2 % (4.4-11.3); NEUTROPHILS # (AUTO) 0.6 (2.1-6.9); NEUTROPHILS % 19.3 % (38.7-80.0); PLATELET COUNT 177 x10e3/uL (140-360); RED CELL DISTRIBUTION WIDTH 25.1 % (11.7-14.4)
[2021-03-19 05:30] LABS: INR 4.61
[2021-03-19 05:31] LABS: PROTHROMBIN TIME 47.1 seconds (11.9-14.5)
[2021-03-19 05:39] LABS: ALBUMIN 2.3 g/dL (3.5-5.0); ALBUMIN/GLOBULIN RATIO 0.7 (0.8-2.0); ANION GAP 15.2 mmol/L (8-16); CALCIUM 8.6 mg/dL (8.4-10.2); CREATININE, SERUM 1.8 mg/dL (0.57-1.11); POTASSIUM 4.2 mmol/L (3.5-5.1)
[2021-03-19] MEDS: LEVOTHYROXINE SODIUM 100 MCG TAB PO SCH (05:43)
[2021-03-19 07:52] VITALS: BP 161/74
[2021-03-19] MEDS: LOSARTAN POTASSIUM 25 MG TAB PO SCH (09:52)
[2021-03-19] MEDS: CARVEDILOL 3.125 MG TAB PO SCH (09:52)
[2021-03-19] MEDS: AMLODIPINE BESYLATE 5 MG TAB PO SCH (09:52)
[2021-03-19] MEDS: HYDRALAZINE HCL 10 MG TAB PO SCH (09:52)
[2021-03-19] MEDS: DEXAMETHASONE SOD PHOS 10 MG/1 ML VIAL IV SCH (09:52)
[2021-03-19] MEDS: PANTOPRAZOLE SOD 40 MG TABEC PO SCH (09:53)
[2021-03-19 11:02] LABS: LYMPHOCYTES % (MANUAL) 32 % (19-48); METAMYELOCYTES % (MANUAL) 6 % (0-0); MONOCYTES % (MANUAL) 32 % (3.4-9.0); MYELOCYTES % (MANUAL) 2 % (0-0); NEUTROPHILS % (MANUAL) 24 % (40-74)
[2021-03-19 11:03] LABS: ANISOCYTOSIS MODERATE; HYPOCHROMASIA MODERATE; PLATELET ESTIMATE ADEQUATE; PLATELET MORPHOLOGY COMMENT NORMAL; RBC MORPHOLOGY COMMENT ABNORMAL
[2021-03-19 11:04] LABS: POIKILOCYTOSIS SLIGHT
[2021-03-19 11:35] VITALS: BP 172/66
== END 2021-03-19 13:58 | disposition home or self-care (01) | DRG 177 ==
LOC: ER 14:31 → ERHOLD 17:16 → MED/SURG3 18:45
PROC: XW033E5 Introduction of Remdesivir Anti-infective into Peripheral Vein, Percutaneous Approach, New Technology Group 5 (ICD-10-PCS; 2021-03-14)
PROC: 3E0333Z Introduction of Anti-inflammatory into Peripheral Vein, Percutaneous Approach (ICD-10-PCS; principal; 2021-03-15)
DX: U07.1 COVID-19 (principal); J12.82 Pneumonia due to coronavirus disease 2019; N17.9 Acute kidney failure, unspecified; I13.0 Hypertensive heart and chronic kidney disease with heart failure and stage 1 through stage 4 chronic kidney disease, or unspecified chronic kidney disease; N18.4 Chronic kidney disease, stage 4 (severe); I50.9 Heart failure, unspecified; E03.9 Hypothyroidism, unspecified; K21.9 Gastro-esophageal reflux disease without esophagitis; Z88.5 Allergy status to narcotic agent; Z88.0 Allergy status to penicillin; J44.9 Chronic obstructive pulmonary disease, unspecified; D63.8 Anemia in other chronic diseases classified elsewhere; M06.9 Rheumatoid arthritis, unspecified; D72.819 Decreased white blood cell count, unspecified; Z86.718 Personal history of other venous thrombosis and embolism; Z86.711 Personal history of pulmonary embolism; Z79.01 Long term (current) use of anticoagulants; E83.51 Hypocalcemia; E88.09 Other disorders of plasma-protein metabolism, not elsewhere classified; D69.6 Thrombocytopenia, unspecified; R06.89 Other abnormalities of breathing; R09.02 Hypoxemia
CPT/HCPCS: 36415; 71045; 76770; 80048; 80053; 81001; 82270; 82550; 82553; 82570; 82948; 83880; 84156; 84165; 84300; 84484; 85025; 85610; 85730; 93005; 94799; 96360; 99251; 99284; J0456; J0696; J1100; J1442; J7030; J7050; U0002

== ENCOUNTER 2021-04-20 10:03 | Emergency (ER) | payer MEDICARE, BC ==
[~2021-04-20] VITALS: Ht 162.6 cm; Wt 93.4 kg
== END 2021-04-20 11:37 | disposition home or self-care (01) ==
LOC: ER 10:15
DX: R04.0 Epistaxis (principal); I10 Essential (primary) hypertension; I50.9 Heart failure, unspecified; E78.5 Hyperlipidemia, unspecified; E03.9 Hypothyroidism, unspecified; F41.9 Anxiety disorder, unspecified; K21.9 Gastro-esophageal reflux disease without esophagitis; G62.9 Polyneuropathy, unspecified; M06.9 Rheumatoid arthritis, unspecified
CPT/HCPCS: 99282

== ENCOUNTER 2022-08-05 07:19 | Emergency (ER) | payer MEDICARE, BC ==
[~2022-08-05] VITALS: Ht 157.5 cm; Wt 90.7 kg
[2022-08-05] MEDS ORDERED: ONDANSETRON HCL INJ 2MG/ML 2ML 2 MG/ML VIAL IV STA (07:34)
[2022-08-05] MEDS ORDERED: DICYCLOMINE HCL 20 MG/2 ML VIAL IM ONE (07:45)
[2022-08-05] MEDS ORDERED: LACTATED RINGER'S 500 ML IV ONE (07:45)
[2022-08-05 08:56] LABS: BASOPHILS % 0.3 % (0.0-1.0); EOSINOPHILS # (AUTO) 0.2 (0.0-0.4); EOSINOPHILS % 2.4 % (0.0-6.0); HEMATOCRIT 38.5 % (34.2-44.1); HEMOGLOBIN 12.7 g/dL (12.0-16.0); LYMPHOCYTES # (AUTO) 2.2 (1.0-3.2); LYMPHOCYTES % 35.2 % (18.0-39.1); MEAN CORPUSCULAR HEMOGLOBIN 32.8 pg (28-32); MEAN CORPUSCULAR VOLUME 99.5 fL (81-99); MONOCYTES # (AUTO) 0.6 (0.2-0.8); MONOCYTES % 9.3 % (4.4-11.3); NEUTROPHILS # (AUTO) 3.3 (2.1-6.9); NEUTROPHILS % 52.5 % (38.7-80.0); PLATELET COUNT 166 x10e3/uL (140-360); RED BLOOD COUNT 3.87 x10e6/uL (3.6-5.1); RED CELL DISTRIBUTION WIDTH 13.4 % (11.7-14.4)
[2022-08-05 09:20] LABS: ALBUMIN 3.4 g/dL (3.5-5.0); ALBUMIN/GLOBULIN RATIO 1.1 (0.8-2.0); ANION GAP 20.1 mmol/L (8-16); CALCIUM 8.8 mg/dL (8.4-10.2); CREATININE, SERUM 0.98 mg/dL (0.57-1.11); POTASSIUM 5.1 mmol/L (3.5-5.1)
[2022-08-05 10:39] VITALS: O2SAT 98
[2022-08-05] MEDS ORDERED: ONDANSETRON ODT4 MG PO (10:44)
[2022-08-05] MEDS ORDERED: DICYCLOMINE HCL20 MG PO (10:44)
[2022-08-05 11:14] LABS: CLARITY,URINE CLOUDY (CLEAR); COLOR,URINE YELLOW (YELLOW); KETONES,URINE 2+ (NEGATIVE); LEUKOCYTE ESTERASE ,URINE TRACE (NEGATIVE); NITRITE,URINE POSITIVE (NEGATIVE); PROTEIN,URINE DIPSTICK 1+ (NEGATIVE); URINE UROBILINOGEN 0.2 mg/dL (0.2 - 1)
[2022-08-05 11:29] LABS: WBC,URINE (MAN) 21-50 /HPF (0-5)
[2022-08-05 11:30] LABS: BACTERIA,URINE MANY /HPF; EPITHELIAL CELLS,URINE RARE /LPF; RBC,URINE 0-5 /HPF (0-5)
== END 2022-08-05 11:35 | disposition home or self-care (01) ==
LOC: ER 07:30
DX: R11.2 Nausea with vomiting, unspecified (principal); K52.9 Noninfective gastroenteritis and colitis, unspecified; E86.0 Dehydration; R05.9 Cough, unspecified
CPT/HCPCS: 36415; 71045; 80053; 81001; 83690; 83880; 84484; 85025; 93005; 99284; J0500; J2405; J7121